=== PATIENT | female | born 1990 | race Caucasian/White ===

== ENCOUNTER 2016-06-12 17:01 | Emergency (ER) | payer BC ==
--- NOTE | 2016-06-12 19:00 | ED CLINICAL REPORT ---
Clinical Report - Physicians/Mid Levels [facility] [address] [place] [address] 06/12/2016 17:01 Patient: MERY SANABRIA Time Seen: 1720 PM. Arrived- By private vehicle. Historian- patient. HISTORY OF PRESENT ILLNESS Chief Complaint: VAGINAL BLEEDING. This started last night. She has had mild vaginal bleeding. Is still present. EDC is June 12. Gestational age is 9 weeks. Similar symptoms previously: Recent medical care: The patient was seen recently in a clinic. REVIEW OF SYSTEMS No nausea, vomiting, diarrhea, fainting episodes or fever. No chills. PAST HISTORY See nurses notes. G 3; P 1; Ab 1. No history of hypertension or diabetes mellitus. She has had care. The patient has had problems with previous (SAB). Surgeries: Tonsillectomy. (frenulectomy). Medications: Plus Iron Oral. vitamin D . Allergies: No Known Drug Allergy. SOCIAL HISTORY Never smoker. No alcohol use or drug use. ADDITIONAL NOTES The nursing notes have been reviewed. PHYSICAL EXAM Vital Signs: 06/12/2016 17:06 BP: 123/72. HR: 64. RR: 18. O2 saturation: 97%. Temp: 98.2 F. Pain level now: 0/10. Have been reviewed and appear to be correct. Appearance: Alert. Oriented X3. No acute distress. HEENT: Normal external inspection. Neck: Neck supple. CVS: Heart sounds normal. Respiratory: No respiratory distress. Abdomen: Soft and nontender. : Speculum exam performed. Normal external exam. Slight, bloody discharge from the cervical os. Cervical os open slightly. Pelvic: Speculum exam performed. Normal external exam. Skin: Skin warm and dry. Normal skin color. Normal skin turgor. Extremities: Extremities nontender. Neuro: Oriented X 3. Mood/affect normal. LABS, X-RAYS, AND EKG Pelvic Sonogram: Blighted ovum is present. No cardiac activity visualized. Study type: bedside transvaginal and obstetrical evaluation. The study was interpreted by the radiologist and discussed with the radiologist. Laboratory Tests: Laboratory tests have been ordered, with results reviewed and considered in the medical decision making process. UA-Culture if indicated: (TERESA: 06/12/2016 17:20) ( [facility] [place] 18:32) Final results Test Result Flag Units (Reference) URINE COLOR YELLOW URINE APPEARANCE SL CLOUDY URINE GLUCOSE NEGATIVE (NEGATIVE) URINE BILIRUBIN NEGATIVE (NEGATIVE) URINE KETONE NEGATIVE (NEGATIVE) URINE SPECIFIC GRAVITY 1.020 (1.010-1.030) URINE PH 6.5 (5.0-8.0) URINE PROTEIN NEGATIVE (NEGATIVE) URINE UROBILINOGEN 0.2 EU/dL (0.2-1.0) URINE NITRITE NEGATIVE (NEGATIVE) URINE BLOOD TRACE-INTACT (NEGATIVE) URINE LEUK ESTERASE NEGATIVE (NEGATIVE) URINE RBC 0-1 rbc/hpf (0-1) URINE WBC NONE SEEN wbc/hpf (0-1) URINE EPITHELIAL CELLS RARE EPI/hpf (0-5) URINE BACTERIA NONE SEEN (NONE SEEN) URINE COMMENT CULT NOT INDICATED 2+ AMORPHOUS URATESURINE CULTURES ARE SET-UP BASED ON THE FOLLOWING CRITERIA:POSITIVE NITRITEPOSITIVE LEUKOCYTE ESTERASEGREATER THAN 10 WHITE BLOOD CELLSMODERATE (2+) OR GREATER BACTERIA CBC w Diff: (TERESA: 06/12/2016 16:55) ( [facility] [place]/12[place] 18:05) Final results Test Result Flag Units (Reference) WHITE BLOOD COUNT 7.6 K/uL (4.5-11.5) RED BLOOD COUNT 4.28 M/uL (4.00-5.20) HEMOGLOBIN 12.5 gm/dL (12.0-16.0) HEMATOCRIT 36.9 % (36.0-46.0) MEAN CELL VOLUME 86 fL (80-100) MEAN CORPUSCULAR HGB 29 pg (26-34) MEAN CORPUSCULAR HGB CONC 34 g/dL (31-37) RED CELL DISTRIBUTION WIDTH 14.4 % (11.6-14.8) PLATELET COUNT 178 K/uL (150-400) NEUTROPHIL % 69.7 % (50-75) LYMPH % 23.4 L % (25-40) MONO % 5.8 % (3-14) EOSINOPHIL % 1.0 % (0-4) BASOPHIL % 0.1 % (0-2) Serum Quantitative: (TERESA: 06/12/2016 16:55) ( [facility] [place] 06/12[place]2016 18:52) Final results Test Result Flag Units (Reference) BETA HCG, QUANTITATIVE 40986 mIU/mL REFERENCE RANGE:Adult Males: <2 mIU/mLNon- Females: <6 mIU/mL Females:Approximate Approximate hCGGestational Age Range (mIU/mL) 0-1 week 0-501-2 weeks 40-3002-3 weeks 100-81035-7 weeks 500-24102-5 months 5,000-200,0002-3 months 10,000-100,0002nd trimester 3,000-50,0003rd trimester 1,000-50,000 Wet Prep: (TERESA: 06/12/2016 17:30) ( [facility] [place] 06/12/2016 18:38) Final results SPECIMEN DESCRIPTION: SWAB Test Result Flag Units (Reference) WET MOUNT CLUE CELLS:: NONE EPITHELIAL CELLS: 1+ -- SOURCE?: CERVIX WHITE BLOOD CELLS: NONE TRICHOMONAS:: NONE -- YEAST:: NONE . PROGRESS AND PROCEDURES Course of Care: Discussion w/ pt re: ultrasound suggesting blighted ovum. Quite certain of dates, and HCG c/w that. Dr Estrada suggested that she could wait a week and recheck. Considered, but given findings, she will most likely proceed w/ cytotec at home (dose rev'd w/ Dr Estrada). She spoke w/ her OB provider while waiting for meds who is aware of tests and will be able to follow her closely. Rhogram administered "on the safe side". Patient is stable. Consult obtained from OB-FLUE DUST LABORER. Consult on phone w/ Dr Estrada. Patient counseled in person regarding the patient's condition, test results, diagnosis and need for follow-up. Disposition: Discharged. Condition: stable. CLINICAL IMPRESSION Blighted ovum. INSTRUCTIONS Do not work for one day. Drink plenty of fluids. (Ultrasound does not show viable . It is more consistent with a blighted ovum. I consulted with our OB-aluminum pourer regarding the misoprostol dose. He did say that you could consider waiting a few days and rechecking hormone and ultrasound, especially if there is any uncertainty about your dates. Rhogam IS still recommended.). Warnings: GENERAL WARNINGS: Return or contact your physician immediately if your condition worsens or changes unexpectedly, if not improving as expected, or if other problems arise. Prescription Medications: Hydrocodone/APAP 5mg / 325mg: take 1 orally every 6 hours as needed for pain. Dispense ten (10). No refill. Zofran (orally disintegrating tablets) 4 mg: take 1-2 orally every 8 hours as needed. Dispense five (5). No refill. Misoprostol 200 mcg. No refills. (4 tabs by mouth x 1 dose) Follow-up: Follow up with your doctor Tuesday. Understanding of the discharge instructions verbalized. (Electronically signed by Jeannie Menjivar A.R.N.P. 06/12/2016 22:03)
--- NOTE | 2016-06-12 19:00 | ED NURSING NOTES ---
Clinical Report - Nurses [facility] [address] [place] [address] 06/12/2016 17:01 Patient: MERY SANABRIA TRIAGE Triage time 1706. Acuity: LEVEL 4. Chief Complaint: (pt started having spotting last night, more dark blood on toliet paper today.). --17:20 Tiffany Zhao R.N. 17:06 06/12/16. BP: 123/72. HR: 64. RR: 18. O2 saturation: 97%. Temp: 98.2 F. Pain level now: 0/10. --17:20 Tiffany Zhao R.N. Weight: 63.5 kg stated. Height/Length: 59 inches Per Patient. BMI: 28.3. --17:19 Tiffany Zhao R.N. Medications vitamin D . --17:18 Tiffany Zhao R.N. Plus Iron Oral. --17:18 Tiffany Zhao R.N. Allergies No Known Drug Allergy. --17:17 Tiffany Zhao R.N. History Arrived by private vehicle. Historian: patient. Unaccompanied. Primary physician (yady). This started yesterday. ( denies dizziness). ( had miscarriage 01/11/16). No vomiting. PAST MEDICAL HX: Negative. Last normal menstrual period- 04/06/16. OB history: G 3; P 1; Ab 1. SURGERY HX: Tonsillectomy. ( frennulumectomy). SOCIAL HX: Never smoker. No alcohol use or drug use. --17:20 Tiffany Zhao R.N. PROBLEMS: no known problems. Interventions ID band on patient. To treatment room. --17:20 Tiffany Zhao R.N. PHYSICAL ASSESSMENT 17:06. Ambulatory to room. Patient gowned. GENERAL / NEURO / PSYCH: Alert. Oriented X 4. Appears in no acute distress. RESPIRATORY: Respirations not labored. CVS: Capillary refill less than 2 seconds. SKIN: Skin is warm and dry. --17:45 Tiffany Zhao R.N. NURSING PROGRESS NOTES 17:06. Head of bed elevated. Reassurance given. Patient identifiers checked. Call light placed in reach. Side rails up. Bed placed in lowest position. Patient ready for evaluation- chart flagged. --17:20 Tiffany Zhao R.N. 17:21 06/12/16. Patient ID band checked for patient name and birthdate. Clean catch urine collected with return of yellow-colored clear urine; sample sent to lab. Specimen labeled in the presence of the patient. --17:21 Tiffany Zhao R.N. 17:25. PELVIC EXAM: Pelvic exam performed by PUBLIC AFFAIRS SPECIALIST. Assisted by one nurse. Preparation: pelvic tray; patient placed in lithotomy position. Procedure: speculum exam. Specimens collected and sent to lab: wet prep. Status post-procedure: she was stable. Total time of assist / procedure: 15 minutes. --17:44 Tiffany Zhao R.N. 17:52 06/12/16. ( US at bedside to do exam). --17:53 Tiffany Zhao R.N. 19:20 06/12/2016 Rhogam IM 300 mcg given. Given in the left ventral gluteus. Allergies verified and confirmed 5 rights. --21:41 Tiffany Zhao R.N. DISPOSITION / DISCHARGE <<STRICKEN ENTRY-- 17:27. Condition at departure: improved and stable. No learning barriers present. Discharge instructions provided and reviewed with the patient. Reviewed medication(s) (amoxicillin, motrin). Treatments reviewed (ice, elevate head). Reviewed referrals (dentist). Patient verbalized understanding. Written instructions provided in Hungarian. The patient was discharged home and accompanied by parent. She left the Emergency Department ambulatory and via private vehicle. Parent driving. --17:42 Tiffany Zhao R.N. --END STRIKE>> Charted On Wrong Patient --17:43 Tiffany Zhao R.N. <<STRICKEN ENTRY-- 17:27 06/12/16. BP: deferred. HR: deferred. RR: deferred. O2 saturation: deferred. Temp: deferred. Pain level now: 05/21. --17:42 Tiffany Zhao R.N. --END STRIKE>> Charted on wrong patient. --17:43 Tiffany Zhao R.N. 19:35. Condition at departure: improved and stable. No learning barriers present. Discharge instructions provided and reviewed with the patient. Reviewed medication(s) (zofrn,misopostol, vicodin). Patient verbalized understanding. Written instructions provided in Hungarian. The patient was discharged home and unaccompanied at time of discharge. She left the Emergency Department ambulatory and via private vehicle. Patient driving. --22:34 Tiffany Zhao R.N. 19:35 06/12/16. BP: 112/68. HR: 70. RR: 16. O2 saturation: 99%. Temp: deferred. Pain level now: 0/10. --22:34 Tiffany Zhao R.N. Locked/Released at 06/12/2016 22:34 by Tiffany Zhao R.N.
--- NOTE | 2016-06-12 19:00 | ED ORDER SUMMARY ---
..... Patient: MERY SANABRIA OrderSheet [facility] VisitID: [id number] [place] [address] 26y, F Registration Date/Time: 06/12/2016 ORDER SHEET Weight: 63.5 kg (stated) Allergies: No Known Drug Allergy GENERAL ORDERS: US OB 1st Trimester w Transvag (04/06/16) Urgent (17:20 06/12/2016 SThom A.R.N.P.) (Ack 17:26 TBergley) (18:07 DDean R.N.) GC/Chlamydia (Cervix) (swab) Urgent (17:20 06/12/2016 SThom A.R.N.P.) (Ack 17:28 TBergley) (Cancelled: Patient Cpgmslm29:34 SThom A.R.N.P.) Wet Prep (Vaginal) (swab) Urgent (17:21 06/12/2016 SThom A.R.N.P.) (Ack 17:28 TBergley) (18:07 DDean R.N.) Serum Quantitative Urgent (17:21 06/12/2016 SThom A.R.N.P.) (Cancelled: Other17:23 SThom A.R.N.P.) UA-Culture if indicated Urgent (17:21 06/12/2016 SThom A.R.N.P.) (Ack 17:28 TBergley) (18:07 DDean R.N.) CBC w Diff Urgent (17:21 06/12/2016 SThom A.R.N.P.) (Ack 17:28 TBergley) (17:38 TBergley) Type & Rh Urgent (17:21 06/12/2016 SThom A.R.N.P.) (Cancelled: Other17:23 SThom A.R.N.P.) Serum Quantitative Urgent (17:36 06/12/2016 SThom A.R.N.P.) (17:38 TBergley) Type & Rh Urgent (17:37 06/12/2016 SThom A.R.N.P.) (17:38 TBergley) MEDICATION ORDERS: RhoGAM IM 300 mcg (NOW) (18:53 06/12/2016 Daniel A.R.N.P.) (Ack 19:00 Lizeth) (21:41 Michael Jensen) IV FLUIDS: ORDER SHEET NOTES: [Electronically signed by Jeannie MenjivarNRupeshPRupesh (22:03 06/12/2016)] [Electronically signed by Tiffany Zhao R.N. (22:34 06/12/2016)] [Electronically locked/signed by Tiffany Zhao R.N. (22:34 06/12/2016)]
--- NOTE | 2016-06-12 19:00 | ED ORDER SUMMARY ---
..... Patient: MERY SANABRIA OrderSheet [facility] VisitID: [id number] [place] [address] 26y, F Registration Date/Time: 06/12/2016 ORDER SHEET Weight: 63.5 kg (stated) Allergies: No Known Drug Allergy GENERAL ORDERS: US OB 1st Trimester w Transvag (04/06/16) Urgent (17:20 06/12/2016 SThom A.R.N.P.) (Ack 17:26 TBergley) (18:07 DDean R.N.) GC/Chlamydia (Cervix) (swab) Urgent (17:20 06/12/2016 SThom A.R.N.P.) (Ack 17:28 TBergley) (Cancelled: Patient Fqbkunm38:34 SThom A.R.N.P.) Wet Prep (Vaginal) (swab) Urgent (17:21 06/12/2016 SThom A.R.N.P.) (Ack 17:28 TBergley) (18:07 DDean R.N.) Serum Quantitative Urgent (17:21 06/12/2016 SThom A.R.N.P.) (Cancelled: Other17:23 SThom A.R.N.P.) UA-Culture if indicated Urgent (17:21 06/12/2016 SThom A.R.N.P.) (Ack 17:28 TBergley) (18:07 DDean R.N.) CBC w Diff Urgent (17:21 06/12/2016 SThom A.R.N.P.) (Ack 17:28 TBergley) (17:38 TBergley) Type & Rh Urgent (17:21 06/12/2016 SThom A.R.N.P.) (Cancelled: Other17:23 SThom A.R.N.P.) Serum Quantitative Urgent (17:36 06/12/2016 SThom A.R.N.P.) (17:38 TBergley) Type & Rh Urgent (17:37 06/12/2016 SThom A.R.N.P.) (17:38 TBergley) MEDICATION ORDERS: RhoGAM IM 300 mcg (NOW) (18:53 06/12/2016 Daniel A.R.N.P.) (Ack 19:00 Lizeth) (21:41 Michael Jensen) IV FLUIDS: ORDER SHEET NOTES: [Electronically signed by Jeannie MenjivarNRupeshPRupesh (22:03 06/12/2016)] [Electronically signed by Tiffany Zhao R.N. (22:34 06/12/2016)] [Electronically locked/signed by Tiffany Zhao R.N. (22:34 06/12/2016)]
--- NOTE | 2016-06-12 19:00 | ED NURSING NOTES ---
Clinical Report - Nurses [facility] [address] [place] [address] 06/12/2016 17:01 Patient: MERY SANABRIA TRIAGE Triage time 1706. Acuity: LEVEL 4. Chief Complaint: (pt started having spotting last night, more dark blood on toliet paper today.). --17:20 Tiffany Zhao R.N. 17:06 06/12/16. BP: 123/72. HR: 64. RR: 18. O2 saturation: 97%. Temp: 98.2 F. Pain level now: 0/10. --17:20 Tiffany Zhao R.N. Weight: 63.5 kg stated. Height/Length: 59 inches Per Patient. BMI: 28.3. --17:19 Tiffany Zhao R.N. Medications vitamin D . --17:18 Tiffany Zhao R.N. Plus Iron Oral. --17:18 Tiffany Zhao R.N. Allergies No Known Drug Allergy. --17:17 Tiffany Zhao R.N. History Arrived by private vehicle. Historian: patient. Unaccompanied. Primary physician (yady). This started yesterday. ( denies dizziness). ( had miscarriage 01/11/16). No vomiting. PAST MEDICAL HX: Negative. Last normal menstrual period- 04/06/16. OB history: G 3; P 1; Ab 1. SURGERY HX: Tonsillectomy. ( frennulumectomy). SOCIAL HX: Never smoker. No alcohol use or drug use. --17:20 Tiffany Zhao R.N. PROBLEMS: no known problems. Interventions ID band on patient. To treatment room. --17:20 Tiffany Zhao R.N. PHYSICAL ASSESSMENT 17:06. Ambulatory to room. Patient gowned. GENERAL / NEURO / PSYCH: Alert. Oriented X 4. Appears in no acute distress. RESPIRATORY: Respirations not labored. CVS: Capillary refill less than 2 seconds. SKIN: Skin is warm and dry. --17:45 Tiffany Zhao R.N. NURSING PROGRESS NOTES 17:06. Head of bed elevated. Reassurance given. Patient identifiers checked. Call light placed in reach. Side rails up. Bed placed in lowest position. Patient ready for evaluation- chart flagged. --17:20 Tiffany Zhao R.N. 17:21 06/12/16. Patient ID band checked for patient name and birthdate. Clean catch urine collected with return of yellow-colored clear urine; sample sent to lab. Specimen labeled in the presence of the patient. --17:21 Tiffany Zhao R.N. 17:25. PELVIC EXAM: Pelvic exam performed by SHEARING MACHINE OPERATOR. Assisted by one nurse. Preparation: pelvic tray; patient placed in lithotomy position. Procedure: speculum exam. Specimens collected and sent to lab: wet prep. Status post-procedure: she was stable. Total time of assist / procedure: 15 minutes. --17:44 Tiffany Zhao R.N. 17:52 06/12/16. ( US at bedside to do exam). --17:53 Tiffany Zhao R.N. 19:20 06/12/2016 Rhogam IM 300 mcg given. Given in the left ventral gluteus. Allergies verified and confirmed 5 rights. --21:41 Tiffany Zhao R.N. DISPOSITION / DISCHARGE <<STRICKEN ENTRY-- 17:27. Condition at departure: improved and stable. No learning barriers present. Discharge instructions provided and reviewed with the patient. Reviewed medication(s) (amoxicillin, motrin). Treatments reviewed (ice, elevate head). Reviewed referrals (dentist). Patient verbalized understanding. Written instructions provided in Sinhala. The patient was discharged home and accompanied by parent. She left the Emergency Department ambulatory and via private vehicle. Parent driving. --17:42 Tiffany Zhao R.N. --END STRIKE>> Charted On Wrong Patient --17:43 Tiffany Zhao R.N. <<STRICKEN ENTRY-- 17:27 06/12/16. BP: deferred. HR: deferred. RR: deferred. O2 saturation: deferred. Temp: deferred. Pain level now: 05/21. --17:42 Tiffany Zhao R.N. --END STRIKE>> Charted on wrong patient. --17:43 Tiffany Zhao R.N. 19:35. Condition at departure: improved and stable. No learning barriers present. Discharge instructions provided and reviewed with the patient. Reviewed medication(s) (zofrn,misopostol, vicodin). Patient verbalized understanding. Written instructions provided in Sinhala. The patient was discharged home and unaccompanied at time of discharge. She left the Emergency Department ambulatory and via private vehicle. Patient driving. --22:34 Tiffany Zhao R.N. 19:35 06/12/16. BP: 112/68. HR: 70. RR: 16. O2 saturation: 99%. Temp: deferred. Pain level now: 0/10. --22:34 Tiffany Zhao R.N. Locked/Released at 06/12/2016 22:34 by Tiffany Zhao R.N.
--- NOTE | 2016-06-12 19:00 | ED CLINICAL REPORT ---
Clinical Report - Physicians/Mid Levels [facility] [address] [place] [address] 06/12/2016 17:01 Patient: MERY SANABRIA Time Seen: 1720 PM. Arrived- By private vehicle. Historian- patient. HISTORY OF PRESENT ILLNESS Chief Complaint: VAGINAL BLEEDING. This started last night. She has had mild vaginal bleeding. Is still present. EDC is June 12. Gestational age is 9 weeks. Similar symptoms previously: Recent medical care: The patient was seen recently in a clinic. REVIEW OF SYSTEMS No nausea, vomiting, diarrhea, fainting episodes or fever. No chills. PAST HISTORY See nurses notes. G 3; P 1; Ab 1. No history of hypertension or diabetes mellitus. She has had care. The patient has had problems with previous (SAB). Surgeries: Tonsillectomy. (frenulectomy). Medications: Plus Iron Oral. vitamin D . Allergies: No Known Drug Allergy. SOCIAL HISTORY Never smoker. No alcohol use or drug use. ADDITIONAL NOTES The nursing notes have been reviewed. PHYSICAL EXAM Vital Signs: 06/12/2016 17:06 BP: 123/72. HR: 64. RR: 18. O2 saturation: 97%. Temp: 98.2 F. Pain level now: 0/10. Have been reviewed and appear to be correct. Appearance: Alert. Oriented X3. No acute distress. HEENT: Normal external inspection. Neck: Neck supple. CVS: Heart sounds normal. Respiratory: No respiratory distress. Abdomen: Soft and nontender. : Speculum exam performed. Normal external exam. Slight, bloody discharge from the cervical os. Cervical os open slightly. Pelvic: Speculum exam performed. Normal external exam. Skin: Skin warm and dry. Normal skin color. Normal skin turgor. Extremities: Extremities nontender. Neuro: Oriented X 3. Mood/affect normal. LABS, X-RAYS, AND EKG Pelvic Sonogram: Blighted ovum is present. No cardiac activity visualized. Study type: bedside transvaginal and obstetrical evaluation. The study was interpreted by the radiologist and discussed with the radiologist. Laboratory Tests: Laboratory tests have been ordered, with results reviewed and considered in the medical decision making process. UA-Culture if indicated: (TERESA: 06/12/2016 17:20) ( [facility] [place] 18:32) Final results Test Result Flag Units (Reference) URINE COLOR YELLOW URINE APPEARANCE SL CLOUDY URINE GLUCOSE NEGATIVE (NEGATIVE) URINE BILIRUBIN NEGATIVE (NEGATIVE) URINE KETONE NEGATIVE (NEGATIVE) URINE SPECIFIC GRAVITY 1.020 (1.010-1.030) URINE PH 6.5 (5.0-8.0) URINE PROTEIN NEGATIVE (NEGATIVE) URINE UROBILINOGEN 0.2 EU/dL (0.2-1.0) URINE NITRITE NEGATIVE (NEGATIVE) URINE BLOOD TRACE-INTACT (NEGATIVE) URINE LEUK ESTERASE NEGATIVE (NEGATIVE) URINE RBC 0-1 rbc/hpf (0-1) URINE WBC NONE SEEN wbc/hpf (0-1) URINE EPITHELIAL CELLS RARE EPI/hpf (0-5) URINE BACTERIA NONE SEEN (NONE SEEN) URINE COMMENT CULT NOT INDICATED 2+ AMORPHOUS URATESURINE CULTURES ARE SET-UP BASED ON THE FOLLOWING CRITERIA:POSITIVE NITRITEPOSITIVE LEUKOCYTE ESTERASEGREATER THAN 10 WHITE BLOOD CELLSMODERATE (2+) OR GREATER BACTERIA CBC w Diff: (TERESA: 06/12/2016 16:55) ( [facility] [place] 18:05) Final results Test Result Flag Units (Reference) WHITE BLOOD COUNT 7.6 K/uL (4.5-11.5) RED BLOOD COUNT 4.28 M/uL (4.00-5.20) HEMOGLOBIN 12.5 gm/dL (12.0-16.0) HEMATOCRIT 36.9 % (36.0-46.0) MEAN CELL VOLUME 86 fL (80-100) MEAN CORPUSCULAR HGB 29 pg (26-34) MEAN CORPUSCULAR HGB CONC 34 g/dL (31-37) RED CELL DISTRIBUTION WIDTH 14.4 % (11.6-14.8) PLATELET COUNT 178 K/uL (150-400) NEUTROPHIL % 69.7 % (50-75) LYMPH % 23.4 L % (25-40) MONO % 5.8 % (3-14) EOSINOPHIL % 1.0 % (0-4) BASOPHIL % 0.1 % (0-2) Serum Quantitative: (TERESA: 06/12/2016 16:55) ( [facility] [place] 18:52) Final results Test Result Flag Units (Reference) BETA HCG, QUANTITATIVE 56922 mIU/mL REFERENCE RANGE:Adult Males: <2 mIU/mLNon- Females: <6 mIU/mL Females:Approximate Approximate hCGGestational Age Range (mIU/mL) 0-1 week 0-501-2 weeks 40-3002-3 weeks 100-54415-1 weeks 500-44320-4 months 5,000-200,0002-3 months 10,000-100,0002nd trimester 3,000-50,0003rd trimester 1,000-50,000 Wet Prep: (TERESA: 06/12/2016 17:30) ( [facility] [place] [facility] 18:38) Final results SPECIMEN DESCRIPTION: SWAB Test Result Flag Units (Reference) WET MOUNT CLUE CELLS:: NONE EPITHELIAL CELLS: 1+ -- SOURCE?: CERVIX WHITE BLOOD CELLS: NONE TRICHOMONAS:: NONE -- YEAST:: NONE . PROGRESS AND PROCEDURES Course of Care: Discussion w/ pt re: ultrasound suggesting blighted ovum. Quite certain of dates, and HCG c/w that. Dr Estrada suggested that she could wait a week and recheck. Considered, but given findings, she will most likely proceed w/ cytotec at home (dose rev'd w/ Dr Estrada). She spoke w/ her OB provider while waiting for meds who is aware of tests and will be able to follow her closely. Rhogram administered "on the safe side". Patient is stable. Consult obtained from OB-FBI SHARPSHOOTER. Consult on phone w/ Dr Estrada. Patient counseled in person regarding the patient's condition, test results, diagnosis and need for follow-up. Disposition: Discharged. Condition: stable. CLINICAL IMPRESSION Blighted ovum. INSTRUCTIONS Do not work for one day. Drink plenty of fluids. (Ultrasound does not show viable . It is more consistent with a blighted ovum. I consulted with our OB-spool cleaner regarding the misoprostol dose. He did say that you could consider waiting a few days and rechecking hormone and ultrasound, especially if there is any uncertainty about your dates. Rhogam IS still recommended.). Warnings: GENERAL WARNINGS: Return or contact your physician immediately if your condition worsens or changes unexpectedly, if not improving as expected, or if other problems arise. Prescription Medications: Hydrocodone/APAP 5mg / 325mg: take 1 orally every 6 hours as needed for pain. Dispense ten (10). No refill. Zofran (orally disintegrating tablets) 4 mg: take 1-2 orally every 8 hours as needed. Dispense five (5). No refill. Misoprostol 200 mcg. No refills. (4 tabs by mouth x 1 dose) Follow-up: Follow up with your doctor Tuesday. Understanding of the discharge instructions verbalized. (Electronically signed by Jeannie Menjivar A.R.N.P. 06/12/2016 22:03)
--- NOTE | 2016-06-12 20:00 | DIAGNOSTIC IMAGING REPORT ---
PROCEDURE: US OB 1ST TRIMESTER W/TRANSVAG INDICATION: ABNORMAL BLEEDING TECHNIQUE: Kaplan scale, color, and spectral Doppler transabdominal and endovaginal sonographic images of the first trimester gravid uterus were obtained. COMPARISON: None. FINDINGS: TRANSABDOMINAL SCANS: Single intrauterine gestational sac. TRANSVAGINAL SCANS: Gestational sac measures 3.2 cm, 9 weeks 4 days. There is no yolk sac present. There is a mural soft tissue nodule measuring 4 mm, without cardiac activity. There is a left corpus luteum cyst. IMPRESSION: 1. Findings consistent with a blighted ovum. 2. Results discussed with LOREE Ramsay
--- NOTE | 2016-06-12 22:34 | ED MAR SUMMARY ---
..... Medication Administration Record [facility] [address] [place] [address] Patient: MERY SANABRIA Visit ID: [id number] 26y, F Weight: 63.5 kg Height/Length: 59 in BMI: 28.3 ALLERGIES: No Known Drug Allergy Given 19:20 06/12/2016 Pavel, Camila Allen Medication Administered: RHOGAM [IM], Dose: 300 mcg IM. Medication Ordered: RhoGAM IM 300 mcg (NOW).
--- NOTE | 2016-06-12 22:34 | ED MAR SUMMARY ---
..... Medication Administration Record [facility] [address] [place] [address] Patient: MERY SANABRIA Visit ID: [id number] 26y, F Weight: 63.5 kg Height/Length: 59 in BMI: 28.3 ALLERGIES: No Known Drug Allergy Given 19:20 06/12/2016 Pavel, Camila Allen Medication Administered: RHOGAM [IM], Dose: 300 mcg IM. Medication Ordered: RhoGAM IM 300 mcg (NOW).
--- NOTE | 2016-06-12 22:34 | ED DISCHARGE INSTRUCTIONS ---
Patient: MERY SANABRIA General Instructions [facility] VisitID: [id number] [place] [address] 26y, F Registration Date/Time: 06/12/2016 Blighted ovum. INSTRUCTIONS Do not work for one day. Drink plenty of fluids. (Ultrasound does not show viable . It is more consistent with a blighted ovum. I consulted with our OB-consulting utility forester regarding the misoprostol dose. He did say that you could consider waiting a few days and rechecking hormone and ultrasound, especially if there is any uncertainty about your dates. Rhogam IS still recommended.). Warnings: GENERAL WARNINGS: Return or contact your physician immediately if your condition worsens or changes unexpectedly, if not improving as expected, or if other problems arise. Prescription Medications: Hydrocodone/APAP 5mg / 325mg: take 1 orally every 6 hours as needed for pain. Dispense ten (10). No refill. Zofran (orally disintegrating tablets) 4 mg: take 1-2 orally every 8 hours as needed. Dispense five (5). No refill. Misoprostol 200 mcg. No refills. (4 tabs by mouth x 1 dose) Follow-up: Follow up with your doctor Tuesday. Understanding of the discharge instructions verbalized. ADDITIONAL INFORMATION Miscarriage (Incomplete) Todays exam shows that your has ended suddenly. While this may be an emotionally difficult time for you, know that it is not an uncommon event. A miscarriage can be due to various causes. These include a problem with the babys chromosomes (genes that carry the information needed for life) or with fertilization or implantation that didnt happen correctly. In most cases no cause can be found. Be assured that this miscarriage was not the result of anything that you did wrong, and it will not interfere with your ability to become in the future. It appears that your miscarriage is not yet complete. There is still some tissue from the in the uterus. You will probably have more cramping and bleeding for the next few days as the uterus expels the tissue. In many cases all of the tissue will pass by itself. But sometimes tissue remains and it must be removed to stop bleeding and prevent infection. Home Care: You may resume normal activities if you are not having heavy bleeding or pain. Until the bleeding stops completely and to prevent infection: Do not have sexual intercourse for as long as the healthcare provider tells you. Use sanitary napkins instead of tampons. Do not douche. If you feel sadness or grief, it may help to talk about your feelings with family and friends, or with a counselor. Follow Up: Make an appointment to see your doctor as directed by our staff. tissue will appear as a one-inch or larger piece of philip or pink flesh. If tissue has not passed from the vagina within the next 5 days, you need to be seen by your doctor for another exam. To prevent infection in the uterus, it may be necessary to remove the tissue through a surgical procedure. Or, you may be prescribed medication to take at home to help your body expel the remaining tissue. Get Prompt Medical Attention if any of the following occur: Heavy bleeding (soaking one new pad an hour over three hours) Foul-smelling vaginal discharge Fever of 100.4F (38C) or higher, or as directed by your healthcare provider Increasing lower abdominal pain Weakness, dizziness, or fainting You have been given the following additional information: Miscarriage (Incomplete) Do not work for one day. (Electronically signed by Jeannie Menjivar A.R.N.P. 06/12/2016 22:03)
--- NOTE | 2016-06-12 22:34 | ED MED RECONCILIATION SUMMARY ---
Patient: MERY SANABRIA Medication Reconciliation Report [facility] VisitID: [id number] [place] [address] 26y, F Registration Date/Time: 06/12/2016 Weight: 63.5 kg Height/Length: 59 in. BMI: 28.3 ALLERGIES: No Known Drug Allergy The patient's Home Medications are listed below: THE FOLLOWING MEDICATIONS NEED TO BE RECONCILED: Plus Iron Oral vitamin D The source(s) of the original Home Medication information: Not obtained. The following Medications were given to the patient in the Emergency Department: Rhogam [IM] IM 300 mcg, administered: 06/12/2016 7:20:00 PM The following Medications were prescribed to the patient: Hydrocodone/APAP 5mg / 325mg: take 1 orally every 6 hours as needed for pain. Dispense ten (10). No refill. -- Jeannie Menjivar A.R.N.P. Zofran (orally disintegrating tablets) 4 mg: take 1-2 orally every 8 hours as needed. Dispense five (5). No refill. -- Jeannie Menjivar A.R.N.P. Misoprostol 200 mcg. No refills.(4 tabs by mouth x 1 dose) -- Jeannie Menjivar A.R.N.P.
--- NOTE | 2016-06-12 22:34 | ED MED RECONCILIATION SUMMARY ---
Patient: MERY SANABRIA Medication Reconciliation Report [facility] VisitID: [id number] [place] [address] 26y, F Registration Date/Time: 06/12/2016 Weight: 63.5 kg Height/Length: 59 in. BMI: 28.3 ALLERGIES: No Known Drug Allergy The patient's Home Medications are listed below: THE FOLLOWING MEDICATIONS NEED TO BE RECONCILED: Plus Iron Oral vitamin D The source(s) of the original Home Medication information: Not obtained. The following Medications were given to the patient in the Emergency Department: Rhogam [IM] IM 300 mcg, administered: 06/12/2016 7:20:00 PM The following Medications were prescribed to the patient: Hydrocodone/APAP 5mg / 325mg: take 1 orally every 6 hours as needed for pain. Dispense ten (10). No refill. -- Jeannie Menjivar A.R.N.P. Zofran (orally disintegrating tablets) 4 mg: take 1-2 orally every 8 hours as needed. Dispense five (5). No refill. -- Jeannie Menjivar A.R.N.P. Misoprostol 200 mcg. No refills.(4 tabs by mouth x 1 dose) -- Jeannie Menjivar A.R.N.P.
== END 2016-06-12 19:35 | disposition home or self-care (01) ==
LOC: ED SRH 17:01
DX: O02.0 Blighted ovum and nonhydatidiform mole (principal); Z3A.09 9 weeks gestation of pregnancy
CPT/HCPCS: 90001; 90004; 90155; 90195; 90197; 95059

== ENCOUNTER → 2016-06-12 | Outpatient (CLI) | payer BC | LOC: LAB SRH 16:29 | DX: Z34.81 Encounter for supervision of other normal pregnancy, first trimester (principal) | CPT/HCPCS: 90074; 93073 ==